=== PATIENT | male | born 1965 | race Caucasian/White ===

== ENCOUNTER 2017-03-16 10:21 | Day surgery (SDC) | payer BC ==
[2017-03-16] VITALS (11 sets, daily range): BP systolic 101–126; BP diastolic 60–81; PULSE 57–88; RESP 10–20; Ht 175.3 cm; Wt 74.0 kg
[~2017-03-16] VITALS: Ht 175.3 cm; Wt 74.0 kg
[~2017-03-16 10:21] MED LIST: CEFAZOLIN 1 GM INJ ONE; DEXAMETHASONE 4 MG/ML 1 ML INJ ONE; FENTAnyl 50 MCG/ML VIAL ONE; GLYCOPYRROLATE 0.4 MG INJ ONE; LIDOCAINE 2% (SDV) 5 ML INJ ONE; LIDOCAINE 2%/EPI 30 ML INJ ONE; MIDAZOLAM 1 MG/ML 2 ML INJ ONE; NEOSTIGMINE 3 MG/3 ML SYRINGE ONE; ONDANSETRON 4 MG INJ ONE; PROPOFOL 20 ML ONE; ROCURONIUM 50 MG INJ ONE; ROPIVACAINE 0.5 % 30 ML VIAL ONE
[2017-03-16] MEDS ORDERED: MEPERIDINE 25 MG INJ IV PRN ×2 (10:30→13:30)
[2017-03-16] MEDS ORDERED: hydrALAzine 20 MG INJ IV PRN (10:30)
[2017-03-16] MEDS ORDERED: ATROPINE 1 MG/10 ML SYRINGE IV PRN (10:30)
[2017-03-16] MEDS ORDERED: ONDANSETRON 4 MG INJ IV PRN ×2 (10:30→13:30)
[2017-03-16] MEDS ORDERED: MIDAZOLAM 1 MG/ML 2 ML INJ IV PRN (10:30)
[2017-03-16] MEDS ORDERED: EPHEDrine SULFATE 50 MG/5 ML SYG IV PRN (10:30)
[2017-03-16] MEDS ORDERED: morphine (1 MG/ML) 10ML SYRINGE IV PRN ×3 (10:30)
[2017-03-16] MEDS ORDERED: LABETALOL HCL 20MG INJ IV PRN (10:30)
[2017-03-16] MEDS ORDERED: HYDROmorphONE (0.2 MG/ML) 10ML SYG IV PRN ×6 (10:30→13:30)
[2017-03-16] MEDS ORDERED: FENTAnyl 50 MCG/ML VIAL IV PRN ×4 (10:30→13:30)
[2017-03-16] MEDS ORDERED: DIPHENHYDRAMINE 50 MG INJ IV PRN ×2 (10:30→13:30)
[2017-03-16] MEDS ORDERED: OXYCODONE/ACETAMINOPHEN (5/325) TAB PO PRN ×2 (10:30)
[2017-03-16] MEDS ORDERED: ASPI-664 PO (10:57)
[2017-03-16] MEDS ORDERED: PARO10TA26 PO (10:57)
[2017-03-16] MEDS ORDERED: BACITRACIN/POLYMYXIN 28.35 GM OINT TOP ONE (11:42)
--- NOTE | 2017-03-16 12:27 | HPN ---
Date/Time of Note Date/Time of Note DATE: 03/16/17 TIME: 12:27 Interval H&P Admission Note Pt. seen H&P reviewed: No system changes KEYONA CORDERO MD Mar 16, 2017 12:27
[2017-03-16] MEDS ORDERED: morphine 10 MG INJ IV PRN (12:30)
[2017-03-16] MEDS ORDERED: morphine 2 MG INJ IV PRN (12:30)
[2017-03-16] MEDS ORDERED: POLYMYXIN/BACITRACIN 1L IRRIG IRR ONE (13:20)
[2017-03-16] MEDS ORDERED: METOCLOPRAMIDE 10 MG INJ IV PRN (13:30)
[2017-03-16] MEDS ORDERED: ROPIVACAINE 0.5 % 30 ML VIAL ONE (15:39)
--- NOTE | 2017-03-16 16:10 | OPR ---
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 Right ankle arthroscopy with extensive debridement 2. Right ankle lateral ankle ligament reconstruction, Brostrom Taylor procedure Surgeon: KEYONA CORDERO MD Anesthesia: general, other (popliteal block) Tourniquet Time: 100 min at 250 mmHg Estimated Blood Loss: 0 - 10 ml's Complications: None Pt Condition Post Procedure: stable Disposition: PACU Indications The patient is a 51-year-old male with a history of multiple right ankle sprains that has failed over a year of PT and anti-inflammatories that has caused significant pain and worsening instability. Patient has failed nonoperative management including bracing and time in physical therapy and wishes to proceed operative treatment of this chronic injury. The patient acknowledged this and wished to proceed with surgery. RISK NOTE: The patient was explained the risks and benefits of the surgery in the patient's pilot station language including, but not limited to infection and bleeding, loss of limb, loss of life, risk of DVT, risk of need for future surgery, risk of injury to blood vessels, nerves, ligaments, or tendons; risk of anesthesia. The patient wished to proceed with this surgery based on these risks. Procedure Description The patient had the correct operative site marked in the preoperative holding area and confirmed with both patient and patient's consent. The patient was brought back in the operative theater, placed supine on the operating table and given regional block anesthesia. The patient was then given 2 g of Ancef preoperatively. Tourniquet placed on the operative extremity thigh non-sterilely. Patient was then given preoperative antibiotics. The right thigh was secured onto the thigh escobar, flexed and all areas were carefully padded with popliteal fossa spared to avoid any compression. The superficial peroneal nerve branch was marked out. The ankle was then prepped and draped in normal sterile fashion. A timeout was taken and all parties in the room agreed it was the correct patient, correct extremity and correct procedure. A soft tissue distraction strap was applied across the ankle and a soft tissue dissection was then placed across the ankle at approximately 30 pounds of force. Attention was then turned to the ankle joint and using a typical anterior medial , posterior lateral and anterolateral portal with care to avoid injury to the neurovascular structures. A 21 point ankle exam was completed revealing significant anterior lateral synovitis with lateral and medial gutter synovitis and scar tissue formation. There was a hemorrhagic nodule seen in the lateral gutter as well as evidence of anterior tibial osteophyte overhang. The significant amount of scar tissue was thoroughly debrided in the lateral and posterior gutter. The lateral and posterior gutter showed extensive scar tissue that was debrided as well as anterolateral synovitis scarring. The ankle was then thoroughly irrigated with saline. All wounds were closed with 4-0 nylon in vertical mattress fashion. The ankle was then reprepped and redraped with a the thigh escobar removed with significant care to maintain sterility. All gloves and instruments were changed and new draping was used. Esmarch was brought up and tourniquet was taken to 250 mmHg. An incision was made from several centimeters above the fibula and carried inferior to the sinus Tarsi. This was carried down through the subcutaneous tissues and a 3-0 undyed Vicryl was used to retract the skin. Care was taken at all times to avoid injury to neurovascular structures. The extensor retinaculum was freed up with extensive adherence to the ATFL and CFL. We then identified the peroneal tendons. There was minimal peroneal tenosynovitis of both brevis and longus which did not require debridement. The interval between the anterior inferior tibial fibular ligament and the anterior talofibular ligament was identified. A clamp was placed into this interval underneath the anterior talofibular ligament. Using electrosurgery cautery. The anterior talofibular was released. This left a cuff of tissue on the fibula. The calcaneofibular ligament was similarly released. There is a significant anterior drawer, with all ligaments released. Lateral gutter was again examined and all frayed areas as well as frayed chondral surface on the lateral aspect of the calcaneus with a loose bony debris and chondral fraying and scarring in the lateral gutter and just proximal to the subtalar are that was clearly debrided. We attempted to place an internal brace however the bone was quite soft at the lateral aspect of the talar body and thus we decided not to proceed with the internal brace. The wounds were irrigated with antibiotic solution. There was an anterior talar neck osteophyte which was also removed and debrided. Then a 2-0 PDS was placed in a pants over vest fashion to reattach to the calcaneal fibular ligament while retracting the peroneal tendons. Then a #0 FiberWire was placed in a pants over vest fashion to reattach remaining portion of the anterior talofibular ligament from posterior to anterior. Final stitch anteriorly along the anterior aspect of the lateral gutter and capsule closed with a 2-0 PDS in a pants over vest fashion. A posterior drawer was applied to the ankle and a blanket was rolled up underneath the tibia to allow gravity to reduce the ankle in neutral dorsiflexion and plantarflexion and inversion and eversion. The sutures were then subsequently tied in sequential fashion from posterior to anterior. Excellent stability was obtained. An anterior drawer was eliminated and ankle have normal range of motion. The wounds were then irrigated again with an leg solution and his retinaculum was reefed and advanced proximally over vest fashion with 3-0 PDS. Wounds were irrigated thoroughly and closed with 3-0 Monocryl followed by a 4-0 Monocryl in a running fashion. The wound was then covered with Steri-Strips PRP 2% hematocrit was placed into the ankle and subtalar joint and 7% hematocrit was placed over the lateral ankle ligaments. PPP was placed on the wound dressing. A compression dressing was applied with Xeroform, 4 x 4's and ABDs and the patient was placed into a short leg splint in neutral position. Patient tolerated procedure well and taken to recovery room in stable condition. At the end of the procedure, all sponge and needle counts were correct. Procedure Date: Mar 16, 2017 Surgeon: KEYONA CORDERO MD, ERIC I. MD Mar 16, 2017 16:10
[2017-03-16] MEDS ORDERED: POLYMYXIN/BACITRACIN 1L IRRIG ONE (16:17)
--- NOTE | 2017-03-16 16:46 | RADRPT ---
PROCEDURE: Intraoperative imaging of the right ankle with fluoroscopy. CLINICAL INDICATION: Right ankle pain. Intraoperative. TECHNIQUE: Four images of the right ankle were obtained in the operating room with an image intens ifier. No radiologist was in attendance. Fluoroscopy time is 1 minute 28 seconds. COMPARISON: No prior study is available for comparison. FINDINGS: Images demonstrate varus stress and valgus stress of the ankle. IMPRESSION: 1. Intraoperative imaging of the right ankle. RPTAT: QQ .Adeel Bell MD, MD Date Time Electronically viewed and signed by .Adeel Bell MD, MD on 03/16/2017 16:45 .R/
== END 2017-03-16 17:35 | disposition home or self-care (01) ==
LOC: SDS 10:21
PROVIDERS: ATTEND Orthopaedic Surgery
DX: M25.371 Other instability, right ankle (principal); M65.871 Other synovitis and tenosynovitis, right ankle and foot; F32.9 Major depressive disorder, single episode, unspecified
CPT/HCPCS: 27695; 29898; 73610; J0690; J2175; J2250; J2405; J2710; J2795; J3010; J1100

== ENCOUNTER 2018-01-02 16:00 | Observation (INO) | END 2018-01-03 18:15 | disposition home or self-care (01) ==